=== PATIENT | male | born 1985 | race African-American/Black ===

== ENCOUNTER 2016-10-31 02:13 | Emergency (ER) | payer BC ==
[~2016-10-31] VITALS: Ht 177.8 cm; Wt 74.8 kg
[2016-10-31] MEDS ORDERED: PREDNISONE20 MG PO (03:25)
[2016-10-31] MEDS ORDERED: VENTOLIN HFA18 GM IH (03:25)
[2016-10-31 03:44] VITALS: BP 136/91
== END 2016-10-31 03:45 | disposition home or self-care (01) ==
LOC: EME 02:13
DX: J45.901 Unspecified asthma with (acute) exacerbation (principal); Z87.891 Personal history of nicotine dependence
CPT/HCPCS: 71020; 94640; 99281; 99283; J7512